=== PATIENT | female | born 1985 | race Two or more races ===

== ENCOUNTER 2017-01-31 22:56 | Emergency (ER) | payer BC, MEDICAID ==
[~2017-01-31] VITALS: Ht 149.9 cm; Wt 104.5 kg
[~2017-01-31 22:56] MED LIST: IBUP-2070 PO; IUD IUTER; MET500 PO
[2017-01-31] MEDS ORDERED: AMOX125T PO (23:10)
[2017-02-01 02:38] VITALS: BP 149/87
== END 2017-02-01 02:53 | disposition home or self-care (01) ==
LOC: EMS 23:00
DX: J06.9 Acute upper respiratory infection, unspecified (principal)
CPT/HCPCS: 81025; 99283